=== PATIENT | female | born 1970 | race African-American/Black ===

== ENCOUNTER 2022-03-17 08:39 | Emergency (ER) | payer SELFPAY ==
[2022-03-17] MEDS ORDERED: Ondansetron PF 4 MG/2 ML Vial ONE ×2 (09:12→09:44)
[2022-03-17] MEDS ORDERED: Pantoprazole 40 MG VIAL ONE ×2 (09:44)
[2022-03-17] MEDS ORDERED: Magnesium 2 GM/50 ML BAG (IN WATER) ONE (09:44)
[2022-03-17 09:50] LABS: #Basophils 0.1 10x3/uL (0.0-0.2); #Monocytes 0.4 10x3/uL (0.0-1.1); #Neutrophils 12.8 10x3/uL (1.5-8.4); %Basophils 0.3 % (0.0-2.0); %Lymphocytes 11.2 % (18.0-47.0); %Monocytes 2.8 % (0.0-10.0); %Neutrophils 85.4 % (40.0-75.0); Hemoglobin 13.9 g/dL (12.0-15.5); Mean Corpuscular HGB CONC 32.9 g/dL (32.0-36.0); Mean Corpuscular Volume 82.1 fl (81.6-98.3); Mean Platelet Volume 12.7 fl (7.4-10.4); Platelet Count 200 10x3/uL (150-450); RBC Distribution Width 15.2 % (11.5-14.5); Red Blood Cell (RBC) Count 5.15 10x6/uL (3.90-5.03)
[2022-03-17 09:59] LABS: ALT (SGPT) 18 U/L (8-55); AST (SGOT) 32 U/L (5-34); Albumin 5.2 g/dL (3.5-5.0); Alkaline Phosphatase 118 U/L (40-110); Anion Gap 23 mmol/L (10-20); BUN (Urea Nitrogen) 8 mg/dL (9.8-20.1); Bilirubin, Total 0.6 mg/dL (0.2-1.2); Calc. Creatinine Clearance 0 mL/min (70-130); Calcium 10.3 mg/dL (7.8-10.44); Carbon Dioxide 19 mmol/L (22-29); Chloride 100 mmol/L (98-107); Estimated GFR 87; Globulin 3.6 g/dL (2.4-3.5); Glucose 160 mg/dL (70-105); Lipase 29 U/L (8-78); Magnesium 1.9 mg/dL (1.6-2.6); Potassium 3.9 mmol/L (3.5-5.1); Protein, Total 8.8 g/dL (6.0-8.3); Sodium 138 mmol/L (136-145)
[2022-03-17 10:02] LABS: Acetaminophen Less than 10.0 mcg/mL (10.0-30.0); Alcohol Less than 10 mg/dL (Less than 10); Salicylate Less than 8.0 mg/dL (15.0-30.0)
[2022-03-17 11:24] LABS: Bilirubin Neg (Negative); Blood, Urine 150 (Negative); Clarity Clear (Clear); Glucose, Urine (Dipstick) 50 mg/dL (Negative); Ketone, Urine 15 mg/dL (Negative); Leukocyte Negative (Negative); Nitrite Negative (Negative); Protein, Urine (Dipstick) 100 mg/dl (Neg-Trace); Urobilinogen Normal mg/dL (Less than 2)
[2022-03-17 11:32] LABS: Amphetamine Not Detected (NotDetected); Barbiturates Screen Not Detected (NotDetected); Benzodiazepine Screen Not Detected (NotDetected); Cocaine Metabolite Screen Not Detected (NotDetected); Methadone Not Detected (NotDetected); Methamphetamine Not Detected (NotDetected); Opiate Screen Not Detected (NotDetected); Oxycodone Screen Not Detected (NotDetected); Phencyclidine (PCP) Not Detected (NotDetected); THC/Cannabinoid Screen Detected (NotDetected); Tricyclic Screen Not Detected (NotDetected)
[2022-03-17 11:36] LABS: Squamous Epithelial 0-3 HPF (0-3); WBC/HPF 0-3 HPF (0-3)
[2022-03-17 11:37] LABS: Bacteria/HPF Rare-Few HPF (None Seen)
[2022-03-17] MEDS ORDERED: Promethazine HCl 25 MG/ML VIAL ONE (11:45)
[2022-03-17] MEDS ORDERED: Iopamidol 300 61% 100 ML VIAL FS ONE (13:55)
== END 2022-03-17 12:30 | disposition home or self-care (01) ==
LOC: CSHERS 08:39
DX: K29.70 Gastritis, unspecified, without bleeding (principal); I10 Essential (primary) hypertension; D50.0 Iron deficiency anemia secondary to blood loss (chronic)
CPT/HCPCS: 36415; 71045; 74177; 80053; 80306; 80307; 81003; 81015; 83605; 83690; 83735; 84484; 85025; 93005; 96361; 96365; 96367; 96375; 96376; C9113; J2405; J2550; J3475; Q9967

== ENCOUNTER 2022-03-20 23:49 | Inpatient (IN) | payer SELFPAY ==
[2022-03-21] MEDS ORDERED: Ondansetron PF 4 MG/2 ML Vial ONE (00:13)
[2022-03-21 00:43] LABS: Hemoglobin 13.8 g/dL (12.0-15.5); Mean Corpuscular HGB CONC 33.8 g/dL (32.0-36.0); Mean Corpuscular Hemoglobin 27.2 pg (27.0-33.0); Mean Corpuscular Volume 80.5 fl (81.6-98.3); Mean Platelet Volume 12.3 fl (7.4-10.4); Platelet Count 187 10x3/uL (150-450); RBC Distribution Width 15.2 % (11.5-14.5); Red Blood Cell (RBC) Count 5.07 10x6/uL (3.90-5.03); White Blood Cell (WBC) Count 12.2 10x3/uL (3.5-10.5)
[2022-03-21 00:47] LABS: MDiff Complete? YES
[2022-03-21 01:00] LABS: ALT (SGPT) 27 U/L (8-55); AST (SGOT) 57 U/L (5-34); Albumin 4.3 g/dL (3.5-5.0); Alkaline Phosphatase 101 U/L (40-110); Anion Gap 19 mmol/L (10-20); BUN (Urea Nitrogen) 16 mg/dL (9.8-20.1); Bilirubin, Total 0.5 mg/dL (0.2-1.2); Calc. Creatinine Clearance 0 mL/min (70-130); Calcium 9.6 mg/dL (7.8-10.44); Carbon Dioxide 23 mmol/L (22-29); Chloride 105 mmol/L (98-107); Estimated GFR 75; Globulin 2.9 g/dL (2.4-3.5); Glucose 129 mg/dL (70-105); Lipase 37 U/L (8-78); Protein, Total 7.2 g/dL (6.0-8.3); Sodium 143 mmol/L (136-145)
[2022-03-21] MEDS ORDERED: Haloperidol Lactate 5 MG/ML VIAL ONE (01:04)
[2022-03-21 01:15] LABS: Diff Comment (RBC Morph SCRN) NORMAL; Eosinophils 1 % (0-10); Lymphocytes 24 % (21-51); Monocytes 9 % (0-10); Neutrophil 61 % (42-75); Platelet Morphology Comment Appears Adequate; Reactive Lymphocytes 5 % (0-10)
[2022-03-21] MEDS ORDERED: hydrALAZINE 20 MG/ML VIAL ONE ×2 (01:43→09:03)
[2022-03-21] MEDS ORDERED: Ketorolac Tromethamine 30 MG/ML VIAL ONE (01:43)
[2022-03-21] MEDS ORDERED: Ondansetron PF 4 MG/2 ML Vial IVP PRN (02:20)
[2022-03-21] MEDS ORDERED: Acetaminophen 325 MG TAB PO PRN (02:20)
[2022-03-21] MEDS ORDERED: Pantoprazole 40 MG VIAL IVP SCH (02:45)
[2022-03-21 02:53] LABS: Bilirubin Neg (Negative); Blood, Urine 10 (Negative); Clarity Clear (Clear); Glucose, Urine (Dipstick) Normal (Negative); Ketone, Urine Negative (Negative); Leukocyte Negative (Negative); Nitrite Negative (Negative); Protein, Urine (Dipstick) Negative (Neg-Trace); Urobilinogen Normal mg/dL (Less than 2)
[2022-03-21 02:59] LABS: Acetaminophen Less than 10.0 mcg/mL (10.0-30.0); Alcohol Less than 10 mg/dL (Less than 10); Salicylate Less than 8.0 mg/dL (15.0-30.0)
[2022-03-21] MEDS ORDERED: Sodium Chloride 0.9% 1,000 ML IV SCH ×2 (03:00→18:00)
[2022-03-21 03:03] LABS: Amphetamine Not Detected (NotDetected); Bacteria/HPF None Seen HPF (None Seen); Barbiturates Screen Not Detected (NotDetected); Benzodiazepine Screen Not Detected (NotDetected); Cocaine Metabolite Screen Not Detected (NotDetected); Methadone Not Detected (NotDetected); Methamphetamine Not Detected (NotDetected); Opiate Screen Not Detected (NotDetected); Oxycodone Screen Not Detected (NotDetected); Phencyclidine (PCP) Not Detected (NotDetected); Squamous Epithelial 0-3 HPF (0-3); THC/Cannabinoid Screen Detected (NotDetected); Tricyclic Screen Not Detected (NotDetected); WBC/HPF 0-3 HPF (0-3)
[2022-03-21] MEDS ORDERED: Pantoprazole 40 MG VIAL ONE ×3 (03:15→09:00)
[2022-03-21 04:21] LABS: Hemoglobin 14.8 g/dL (12.0-15.5); Mean Corpuscular HGB CONC 33.1 g/dL (32.0-36.0); Mean Corpuscular Hemoglobin 27.2 pg (27.0-33.0); Mean Corpuscular Volume 82.2 fl (81.6-98.3); Mean Platelet Volume 11.9 fl (7.4-10.4); Platelet Count 187 10x3/uL (150-450); RBC Distribution Width 15.6 % (11.5-14.5); Red Blood Cell (RBC) Count 5.44 10x6/uL (3.90-5.03); White Blood Cell (WBC) Count 12.3 10x3/uL (3.5-10.5)
[2022-03-21] MEDS: hydrALAZINE 20 MG/ML VIAL SLOW IVP PRN ×2 (04:36→09:00)
[2022-03-21 05:04] LABS: MDiff Complete? YES
[2022-03-21 05:06] LABS: Lymphocytes 15 % (21-51); Monocytes 3 % (0-10); Neutrophil 82 % (42-75)
[2022-03-21 05:07] LABS: Diff Comment (RBC Morph SCRN) NORMAL; Platelet Morphology Comment Appears Adequate
[2022-03-21 05:44] LABS: ALT (SGPT) 28 U/L (8-55); AST (SGOT) 55 U/L (5-34); Albumin 4.4 g/dL (3.5-5.0); Alkaline Phosphatase 91 U/L (40-110); Anion Gap 16 mmol/L (10-20); BUN (Urea Nitrogen) 11 mg/dL (9.8-20.1); Bilirubin, Total 0.6 mg/dL (0.2-1.2); Calc. Creatinine Clearance 0 mL/min (70-130); Calcium 9.3 mg/dL (7.8-10.44); Carbon Dioxide 25 mmol/L (22-29); Chloride 103 mmol/L (98-107); Estimated GFR 84; Globulin 3.1 g/dL (2.4-3.5); Glucose 144 mg/dL (70-105); Potassium 3.5 mmol/L (3.5-5.1); Protein, Total 7.5 g/dL (6.0-8.3); Sodium 140 mmol/L (136-145)
[2022-03-21] MEDS ORDERED: ALPRAZolam 0.5 MG TAB ONE (06:28)
[2022-03-21] MEDS ORDERED: ALPRAZolam 0.25 MG TAB PO SCH (06:30)
[2022-03-21 06:59] LABS: CKMB 2.4 ng/mL (0-6.6)
[2022-03-21] MEDS ORDERED: Enoxaparin Sodium 40 MG/0.4 ML SYRINGE ONE (08:58)
[2022-03-21] MEDS: Pantoprazole 40 MG VIAL IVP SCH (09:10)
[2022-03-21] MEDS: Enoxaparin Sodium 40 MG/0.4 ML SYRINGE SC SCH (09:20)
[2022-03-21 09:26] LABS: SARS-CoV-2 NAA Rapid Test Not Detected (NotDetected)
[2022-03-21] MEDS ORDERED: Labetalol HCl 100 MG/20 ML VIAL SLOW IVP PRN ×2 (10:10→10:24)
[2022-03-21 10:50] LABS: Troponin I 0.078 ng/mL (< 0.028)
[2022-03-21] MEDS ORDERED: niCARdipine 25 MG in Sodium Chloride 0.9% 250 ML 250 ML IVPB SCH (12:15)
[2022-03-21 13:09] LABS: Lactic Acid 2.3 mmol/L (0.5-2.2)
[2022-03-21] MEDS ORDERED: Amlodipine 10 MG TAB PO SCH (14:15)
[2022-03-21] MEDS ORDERED: Morphine 2 MG/ML VIAL SLOW IVP PRN (17:54)
[2022-03-21] MEDS: Sodium Chloride 0.9% 1,000 ML IV SCH ×2 (18:59→23:33)
[2022-03-21] MEDS ORDERED: diphenhydrAMINE 25 MG CAP PO SCH (23:45)
[2022-03-22 05:01] LABS: ALT (SGPT) 25 U/L (8-55); AST (SGOT) 53 U/L (5-34); Albumin 4.1 g/dL (3.5-5.0); Alkaline Phosphatase 91 U/L (40-110); Anion Gap 13 mmol/L (10-20); BUN (Urea Nitrogen) 8 mg/dL (9.8-20.1); Bilirubin, Total 0.9 mg/dL (0.2-1.2); Calc. Creatinine Clearance 108 mL/min (70-130); Calcium 9.4 mg/dL (7.8-10.44); Carbon Dioxide 24 mmol/L (22-29); Chloride 108 mmol/L (98-107); Estimated GFR 97; Glucose 93 mg/dL (70-105); Potassium 3.5 mmol/L (3.5-5.1); Protein, Total 7.1 g/dL (6.0-8.3); Sodium 141 mmol/L (136-145)
[2022-03-22 05:12] LABS: Mean Corpuscular HGB CONC 33.2 g/dL (32.0-36.0); Mean Corpuscular Hemoglobin 26.7 pg (27.0-33.0); Mean Corpuscular Volume 80.5 fl (81.6-98.3); Mean Platelet Volume 12.7 fl (7.4-10.4); Platelet Count 193 10x3/uL (150-450); RBC Distribution Width 15.2 % (11.5-14.5); Red Blood Cell (RBC) Count 5.24 10x6/uL (3.90-5.03); White Blood Cell (WBC) Count 11.4 10x3/uL (3.5-10.5)
[2022-03-22 05:26] LABS: MDiff Complete? YES; Manual Diff?? YES
[2022-03-22 05:49] LABS: Band 1 % (5-11); Lymphocytes 48 % (21-51); Monocytes 9 % (0-10); Neutrophil 41 % (42-75); Nucleated RBC 3 % (0); Platelet Morphology Comment Appears Adequate
[2022-03-22 05:51] LABS: Anisocytosis SLIGHT = 6-15 cells (100X) (0-5/hpf); Microcytosis SLIGHT = 6-15 cells (100X) (0-5/hpf); Poikilocytosis SLIGHT = 6-15 cells (100X) (0-5/hpf); Schistocytes SLIGHT = 2-5 cells (100X) (0-1/hpf); Target Cells SLIGHT = 2-5 cells (100X) (0-1/hpf)
[2022-03-22 05:52] LABS: Toxic Granulation SLIGHT; Vacuoles SLIGHT
[2022-03-22] MEDS: Enoxaparin Sodium 40 MG/0.4 ML SYRINGE SC SCH (08:29)
[2022-03-22] MEDS: Amlodipine 10 MG TAB PO SCH (08:29)
[2022-03-22] MEDS: Pantoprazole 40 MG VIAL IVP SCH (08:30)
[2022-03-22] MEDS: Lisinopril 10 MG TAB PO SCH (08:40)
[2022-03-23] MEDS ORDERED: diphenhydrAMINE 25 MG CAP PO PRN (00:46)
[2022-03-23 05:36] VITALS: BMI 30.4
[2022-03-23] MEDS: Enoxaparin Sodium 40 MG/0.4 ML SYRINGE SC SCH (10:05)
[2022-03-23] MEDS: Amlodipine 10 MG TAB PO SCH (10:05)
[2022-03-23] MEDS: Lisinopril 10 MG TAB PO SCH (10:05)
[2022-03-23] MEDS: Pantoprazole 40 MG VIAL IVP SCH (10:06)
[2022-03-23 12:06] VITALS: BP 133/68; TEMP 97.2
== END 2022-03-23 14:06 | disposition home or self-care (01) | DRG 919 ==
LOC: CSHERS 23:49 → CSHERHOLD 03-21 02:17 → CSHICU 03-21 10:25 → OBSVTOIN 03-21 15:20 → CSHTELE 03-22 14:45
PROVIDERS: ADMIT Internal Medicine; ATTEND Internal Medicine
DX: T85.898A Other specified complication of other internal prosthetic devices, implants and grafts, initial encounter (principal); I21.A1 Myocardial infarction type 2; K55.069 Acute infarction of intestine, part and extent unspecified; D50.9 Iron deficiency anemia, unspecified; D72.829 Elevated white blood cell count, unspecified; I16.0 Hypertensive urgency; R73.9 Hyperglycemia, unspecified; F12.90 Cannabis use, unspecified, uncomplicated; Z20.822 Contact with and (suspected) exposure to COVID-19; Y83.8 Other surgical procedures as the cause of abnormal reaction of the patient, or of later complication, without mention of misadventure at the time of the procedure; Z90.710 Acquired absence of both cervix and uterus; Z98.890 Other specified postprocedural states
CPT/HCPCS: 36415; 71045; 76705; 80053; 80306; 80307; 81003; 81015; 82553; 83605; 83690; 84484; 85025; 93005; 94760; 96361; 96372; 96374; 96375; 96376; C9113; G0378; J0360; J1630; J1650; J1885; J2405; J7050

== ENCOUNTER 2022-08-30 12:47 | Outpatient (CLI) | payer BC | END 2022-08-30 12:48 | disposition home or self-care (01) | LOC: CSHMAMMO 12:47 | PROVIDERS: ATTEND Family Medicine | DX: Z12.31 Encounter for screening mammogram for malignant neoplasm of breast (principal); Z80.3 Family history of malignant neoplasm of breast | CPT/HCPCS: 77063; 77067 ==

== ENCOUNTER 2024-02-08 09:30 | Outpatient (CLI) | payer BC | END 2024-02-08 09:31 | disposition home or self-care (01) | LOC: CSHMAMMO 09:30 | PROVIDERS: ATTEND Student in an Organized Health Care Education/Training Program | DX: Z12.31 Encounter for screening mammogram for malignant neoplasm of breast (principal); Z80.3 Family history of malignant neoplasm of breast | CPT/HCPCS: 77063; 77067 ==